=== PATIENT | female | born 1965 | race Caucasian/White ===

== ENCOUNTER 2016-07-28 23:59 | Emergency (ER) | payer OTHER ==
--- NOTE | ~2016-07-28 | CR72 ---
[facility] A Service of [facility] RADIOLOGY TEXT RESULTS PATIENT: GAGE DOWNS LOCATION: [facility] : 69 UNIT #: [id number] AGE: [address]: Celestine Jasso MD SEX: F ORDER DR: [id number] [facility] [address] [place], [place] [address] [id number] E MR#: [id number] Acc #: [id number] NAME: GAGE DOWNS. : 1965 SEX: F STUDY DATE/TIME: 07/29/2016 1:23 UNIT: [facility] ROOM: STUDY DESCRIPTION: CR Chest Single View Portable Attending Physician: Celestine Jasso M.D. Ordering Physician: Celestine Jasso M.D. Primary Care Physician: Ventura Massey M.D. MEDICAL IMAGING REPORT This report is preliminary unless electronic signature is present EXAM AP portable chest 07/29/2016. HISTORY 51-year-old female in the ED complaining of 3-day history of shortness of air, cough and dizziness. TECHNIQUE AP portable upright chest x-ray. FINDINGS The examination shows plate-like atelectasis in both lung bases. The lungs are otherwise clear. No visible airspace consolidation or pleural effusion. Heart size and pulmonary vascularity are within normal limits. IMPRESSION Plate-like atelectasis both lung bases. The examination is otherwise negative. Dictated by... Darrel Albright M.D. THIS IS AN ELECTRONICALLY VERIFIED REPORT Darrel Albright M.D. at 07/29/2016 9:59 PM RGW/tamiko TD: 07/29/2016 12:11 JOB #: [id number] MEDICAL IMAGING REPORT COPY
[~2016-07-28 23:59] MED LIST: AMOXICILLIN PO; ATIVAN PO; CIPRO PO; DEPAKOTE PO; DIFLUCAN PO; FLAGYL PO; FLEXERIL PO; FLONASE16 GM; IBUPROFEN PO; KETOPROFEN PO; KLONOPIN PO; KLONOPIN1 MG PO; MUCINEX DM1 TAB.SR . PO; PERMETHRIN1 GM MC; PHENERGAN PO; ROBAXIN PO; SEROQUEL PO; TYLENOL #3 PO; VISTARIL PO; VISTARIL50 MG PO; VOLTAREN75 MG PO; ZANTAC PO; ZANTAC150 MG PO; ZITHROMAX PO; ZITHROMAX1 G/PKT PO
[2016-07-29 01:07] LABS: INFLUENZA A NEG (NEG)
[2016-07-29 01:08] LABS: INFLUENZA B NEG (NEG)
== END 2016-07-29 02:45 | disposition home or self-care (01) ==
LOC: CED 23:59
PROVIDERS: Emergency Medicine
DX: J06.9 Acute upper respiratory infection, unspecified (principal); F41.9 Anxiety disorder, unspecified; F31.9 Bipolar disorder, unspecified; K21.9 Gastro-esophageal reflux disease without esophagitis; F17.210 Nicotine dependence, cigarettes, uncomplicated; Z88.8 Allergy status to other drugs, medicaments and biological substances
CPT/HCPCS: 71010; 87804; 94010; 99283